=== PATIENT | male | born 1980 | race Caucasian/White ===

== ENCOUNTER 2023-03-11 12:48 | Emergency (ER) | payer MEDICAID, OTHER ==
[~2023-03-11] VITALS: Ht 172.7 cm; Wt 63.9 kg
[2023-03-11 12:49] VITALS: BP 134/98
[2023-03-11] MEDS ORDERED: BACT800T5 PO (13:45)
== END 2023-03-11 13:53 | disposition home or self-care (01) ==
LOC: M ED 12:48
DX: L66.4 Folliculitis ulerythematosa reticulata (principal); K64.8 Other hemorrhoids; F17.200 Nicotine dependence, unspecified, uncomplicated; F10.10 Alcohol abuse, uncomplicated; Z79.2 Long term (current) use of antibiotics

== ENCOUNTER 2024-01-23 19:12 | Emergency (ER) | payer OTHER, SELFPAY ==
[~2024-01-23] VITALS: Ht 175.3 cm; Wt 61.4 kg
[~2024-01-23 19:12] MED LIST: BACT800T5 PO
[2024-01-23 20:16] LABS: HEMATOCRIT 44.8 % (42.0-52.0); HEMOGLOBIN 15.7 g/dl (13.5-17.5); MEAN CORPUSCULAR VOLUME 94.1 fl (80.0-96.0); PLATELET COUNT, AUTOMATED 228 10^3/uL (150-450); RED BLOOD COUNT 4.76 10^6/uL (4.30-6.10)
[2024-01-23 20:19] LABS: AMPHETAMINES LEVEL URINE NEGATIVE (NEGATIVE); BARBITURATES URINE NEGATIVE (NEGATIVE); BENZODIAZEPINES URINE NEGATIVE (NEGATIVE); CANNABINOIDS URINE NEGATIVE (NEGATIVE); COCAINE METABOLITE URINE NEGATIVE (NEGATIVE); METHADONE URINE NEGATIVE (NEGATIVE); OPIATES URINE NEGATIVE (NEGATIVE); PHENCYCLIDINE URINE NEGATIVE (NEGATIVE)
[2024-01-23 20:23] LABS: ALBUMIN 3.9 G/DL (3.2-5.2); ALKALINE PHOSPHATASE 51 U/L (46-116); ALT/SGPT 24 U/L (7.0-40); AST/SGOT 31 U/L (<34); BILIRUBIN,DIRECT 0.1 MG/DL (<0.4); BILIRUBIN,TOTAL 0.3 MG/DL (0.3-1.2); BLOOD UREA NITROGEN 8 MG/DL (9-23); CALCIUM LEVEL 8.5 MG/DL (8.5-10.1); CARBON DIOXIDE LEVEL 26 MMOL/L (20-31); CHLORIDE LEVEL 99 MMOL/L (98-107); CREATININE FOR GFR 0.95 MG/DL (0.70-1.30); GLOMERULAR FILTRATION RATE > 60.0 (>60); GLUCOSE, FASTING 75 MG/DL (60-100); POTASSIUM SERUM 3.8 MMOL/L (3.5-5.1); SALICYLATE LEVEL < 3.0 MG/DL (<30); SODIUM LEVEL 132 MMOL/L (136-145); TOTAL PROTEIN 7.3 G/DL (5.7-8.2)
[2024-01-23 20:25] LABS: THYROID STIMULATING HORMONE 1.271 uIU/ML (0.55-4.78)
[2024-01-23 21:04] LABS: ETHYL ALCOHOL (ETHANOL) 0.303 % (0.000-0.010)
[2024-01-24] MEDS ORDERED: HOME MED LIST COMPLETE! XX SCH (08:15)
[2024-01-24 13:45] VITALS: BP 132/65; TEMP 98; O2SAT 96
== END 2024-01-24 13:45 | disposition home or self-care (01) ==
LOC: M ED 19:12
DX: F10.120 Alcohol abuse with intoxication, uncomplicated (principal)